=== PATIENT | male | born 1945 | race Caucasian/White ===

== ENCOUNTER → 2017-02-09 | Outpatient (CLI) | payer MEDICARE ==
--- NOTE | 2017-02-09 08:49 | XR ---
EXAM TYPE: LUMBAR SPINE X RAY SERIES COMPARISON: NONE HISTORY: Back pain TECHNIQUE: 3 views are submitted. FINDINGS: Alignment is anatomic. The pedicles are intact. The transverse processes are intact. There is no s pondylolysis or spondylolisthesis. Hypertrophic and degenerative changes are seen at all levels with most marked changes at L4-5 and L5-S1 with facet arthropathy. IMPRESSION: 1. Level hypertrophic and degenerative disc disease with facet arthropathy.
--- NOTE | 2017-02-09 08:55 | US ---
EXAMINATION TYPE: US abdomen complete DATE OF EXAM: 02/09/2017 8:26 AM COMPARISON: NONE CLINICAL HISTORY: N20.0 Kidney stone. pt states rt posterior abd pain EXAM MEASUREMENTS: Liver Length: 18.4 cm Gallbladder Wall: 0.2 cm CBD: 0.5 cm Spleen: 11.4 cm Right Kidney: 11.4 x 5.0 x 6.3 cm Left Kidney: 12.6 x 6.1 x 6.2 cm Some exam limitations due to overlying bowel gas Pancreas: gassed out Liver: upper limits in size, attenuating, coarse echopattern, sparing around gb Gallbladder: wnl Evidence for sonographic Perry's sign: no CBD: wnl Spleen: wnl Right Kidney: wnl Left Kidney: wnl Upper IVC: wnl as seen Abd Aorta: prox and mid gassed out, dist wnl The liver is heterogenous and this may reflect fatty liver. The intrahepatic portion of the IVC and p roximal abdominal aorta are within normal limits. There is no evidence of cholelithiasis. Common bi le duct is unremarkable. The visualized portions of the pancreas are homogenous. The spleen is unre markable. Kidneys are symmetric and free of hydronephrosis. No renal lesions are seen. IMPRESSION: 1 probable hepatic steatosis.
== END | disposition home or self-care (01) ==
LOC: RADUSWWP 08:09
PROVIDERS: ATTEND Internal Medicine Geriatric Medicine
DX: M51.36 Other intervertebral disc degeneration, lumbar region (principal); M43.8X6 Other specified deforming dorsopathies, lumbar region; M46.96 Unspecified inflammatory spondylopathy, lumbar region; N20.0 Calculus of kidney
CPT/HCPCS: 72100; 76700

== ENCOUNTER → 2017-04-16 | Outpatient (CLI) | payer MEDICARE ==
[2017-04-16 11:38] LABS: Blood Urea Nitrogen 23 mg/dL (9-20); Non-African American GFR(MDRD) >60 (>60 ml/min/1.73 sqM)
== END | disposition home or self-care (01) ==
LOC: LABWHC1 10:54
PROVIDERS: ATTEND Internal Medicine Geriatric Medicine
DX: M54.5 Low back pain (principal)
CPT/HCPCS: 36415; 82565; 84520

== ENCOUNTER → 2017-04-18 | Outpatient (CLI) | payer MEDICARE ==
--- NOTE | 2017-04-18 08:02 | MR ---
EXAMINATION TYPE: MR lumbar spine wo/w con DATE OF EXAM: 04/18/2017 7:23 AM COMPARISON: NONE HISTORY: low back pain CONTRAST: The patient was injected with 20 mL intravenous MultiHance gadolinium contrast. Multiplanar, MultiSpin echo imaging of the lumbar spine was performed. There is a transitional lumba r segment with partial sacralization of L5 suspected. L1-L2: Normal disc appearance without desiccation. No herniation, protrusion or disc bulging. No ca nal stenosis is present. Foramina are patent bilaterally. L2-L3: There is mild decreased signal ossified compatible with mild degenerative disc disease. Mild p osterior disc bulge without herniation protrusion or central stenosis. There is facet joint arthropat hy without significant foraminal encroachment. L3-L4: There is mild decreased signal ossified compatible with mild degenerative disc disease. Mild p osterior disc bulge without herniation protrusion or central stenosis. Small annular tear noted. Ther e is facet joint arthropathy resulting in mild bilateral foraminal encroachment. L4-L5: There is mild decreased signal ossified compatible with mild degenerative disc disease. Mild p osterior disc bulge without herniation protrusion or central stenosis. Small annular tear noted. Ther e is facet joint arthropathy resulting in mild bilateral foraminal encroachment. L5-S1: Normal disc appearance without desiccation. No herniation, protrusion or disc bulging. No ca nal stenosis is present. Foramina are patent bilaterally. Lumbar segments are intact. No paraspinal masses are identified. Conus medullaris has a normal appe arance. No pathologic enhancement identified. IMPRESSION: 1. Degenerative disc disease as discussed. 2. Posterior disc bulge with small annular tears. Mild foraminal encroachment as discussed.
== END | disposition home or self-care (01) ==
LOC: RADMRIMAIN 06:32
PROVIDERS: ATTEND Internal Medicine Geriatric Medicine
DX: M51.26 Other intervertebral disc displacement, lumbar region (principal); M51.36 Other intervertebral disc degeneration, lumbar region
CPT/HCPCS: 72158; A9577

== ENCOUNTER → 2017-07-18 | Outpatient (CLI) | payer MEDICARE ==
--- NOTE | 2017-07-18 13:25 | CT ---
EXAMINATION TYPE: CT abdomen pelvis wo con DATE OF EXAM: 07/18/2017 COMPARISON: NONE INDICATION: Hematuria DLP: 995.8 mGycm, Automated exposure control for dose reduction was used. CONTRAST: 0 mL of Omnipaque 300. Study performed without Oral Contrast TECHNIQUE: Axial images were obtained from above the diaphragm to the pubic rami in the axial plane a t 5 mm thick sections. Reconstructed images are reviewed on the computer in the coronal plane. FINDINGS: There is limitation due to lack of intravenous and oral contrast. Limited CT sections are obtained the lung bases. The lung bases are clear. Coronary artery calcific ations present. CT ABDOMEN: Liver: Normal Spleen: Normal Pancreas: Normal Adrenal glands: The adrenal glands are normal. Gallbladder: Normal Kidneys: No masses are evident. No hydronephrosis is present. No cysts are present. There is a 0.4 cm calcification at the inferior pole left kidney. There is some mild hydronephrosis or prominence o f the renal calyces on the left. Small peripelvic cyst be concluded within the differential. No hydro ureter or dilated renal pelvis is evident. Aorta: Vascular calcification is within the aorta. Inferior vena cava: Normal. CT PELVIS: Loops of bowel within the abdomen and pelvis are normal. Studies without oral contrast limiting t he evaluation. Appendix: Not identified Urinary bladder: Normal. Genitourinary structures: Prostate is prominent Osseous structures: No suspicious lytic or sclerotic lesions. IMPRESSIONS: 1. Small peripelvic cysts inferior pole left kidney versus prominence of the renal collecting system and calyces. Nonobstructing 0.4 cm calcification is in the posterior inferior pole left kidney. No h ydroureter is evident.
== END | disposition home or self-care (01) ==
LOC: RADCTMAIN 07:38
PROVIDERS: ATTEND Internal Medicine Geriatric Medicine
DX: N28.89 Other specified disorders of kidney and ureter (principal); R31.9 Hematuria, unspecified
CPT/HCPCS: 74176

== ENCOUNTER → 2019-03-31 | Outpatient (CLI) | payer MEDICARE ==
--- NOTE | 2019-03-31 15:49 | MR ---
EXAMINATION TYPE: MR lumbar spine wo con DATE OF EXAM: 03/31/2019 COMPARISON: 04/18/2017 HISTORY: Radiculopathy Lumbar region TECHNIQUE: T1 and T2 axial and sagittal images of the lumbar spine are submitted. FINDINGS: There is no abnormal signal seen within the visualized spinal cord or paraspinal soft tissu es. At L1-2 there is there is disc desiccation. No disc herniation. Mild hypertrophic change of the facet s. Neural foramina patent. No Canal stenosis. At L2-3 there is disc desiccation and hypertrophic change of the facets. There is left paracentral an d lateral disc bulging. No foraminal encroachment or canal stenosis. At L3-4 there is degenerative disc disease with more marked hypertrophy of the facet joints and ligam entum flavum. There is circumferential disc bulging. Mild flattening of the thecal sac. Mild bilatera l foraminal encroachment. Borderline central stenosis. At L4-5 there is degenerative disc disease with advanced facet arthropathy and circumferential disc b ulging. Mild to moderate bilateral foraminal encroachment. No central stenosis. At L5-S1 there is no disc herniation or canal stenosis. Neural foramina patent. IMPRESSION: 1. Multilevel degenerative disc disease. Disc bulging at L2-L3, L3-L4 and L4-L5 but no focal herniati on. Advanced facet arthropathy L3-4 and L4-5 results in bilateral foraminal encroachment as discussed above. Findings are similar to the prior exam.
== END | disposition home or self-care (01) ==
LOC: RADMRIMAIN 13:58
PROVIDERS: ATTEND Physical Medicine & Rehabilitation
DX: M51.36 Other intervertebral disc degeneration, lumbar region (principal); M47.817 Spondylosis without myelopathy or radiculopathy, lumbosacral region; M46.96 Unspecified inflammatory spondylopathy, lumbar region; M51.86 Other intervertebral disc disorders, lumbar region; E11.9 Type 2 diabetes mellitus without complications
CPT/HCPCS: 72148

== ENCOUNTER → 2020-10-11 | Outpatient (CLI) | payer MEDICARE ==
[2020-10-11 11:57] LABS: HCT 40.3 % (39.0-53.0); HGB 12.9 gm/dL (13.0-17.5); MCH 30.1 pg (25.0-35.0); MCHC 32.1 g/dL (31.0-37.0); MCV 93.7 fL (80.0-100.0); Mean Platelet Volume 7.9; Platelet Count 212 k/uL (150-450); WBC 6.9 k/uL (3.8-10.6)
[2020-10-11 12:15] LABS: Albumin 4.7 g/dL (3.5-5.0); Calcium 9.8 mg/dL (8.4-10.2); Potassium 5.4 mmol/L (3.5-5.1); Total Bilirubin 0.4 mg/dL (0.2-1.3); Total Protein 7.6 g/dL (6.3-8.2)
[2020-10-11 12:32] LABS: Partial Thromboplastin Time 22.6 sec (22.0-30.0); Prothrombin Time 10.8 sec (9.0-12.0)
[2020-10-11 13:14] LABS: Appearance,Urine Clear (Clear); Bilirubin,Urine Negative (Negative); Blood,Urine Negative (Negative); Color,Urine Yellow; Glucose,Urine (UA) Negative (Negative); Ketones,Urine Negative (Negative); Leukocyte Esterase,Urine Negative (Negative); Nitrite,Urine Negative (Negative); Protein,Urine Negative (Negative); Specific Gravity,Urine 1.016 (1.001-1.035); Urobilinogen,Urine <2.0 mg/dL (<2.0)
== END | disposition home or self-care (01) ==
LOC: LABPAT 10:18
PROVIDERS: ATTEND Orthopaedic Surgery
DX: Z01.818 Encounter for other preprocedural examination (principal); Z01.812 Encounter for preprocedural laboratory examination
CPT/HCPCS: 36415; 80053; 81003; 85027; 85610; 85730; 87070

== ENCOUNTER 2020-11-08 07:33 | Day surgery (SDC) | payer MEDICARE, OTHER ==
[2020-11-03 11:04] VITALS: BMI 32.5
[~2020-11-08 07:33] MED LIST: ACETAMINOPHEN TAB 500 MG TAB PO PRN; GABAPENTIN 300 MG CAP PO PRN; MELOXICAM 7.5 MG TAB PO PRN; ONDANSETRON 4 MG/2 ML VIAL IVP PRN; TRANEXAMIC ACID 1,000 MG in SODIUM CHLORIDE 0.9% 100 ML IVPB PRN
[2020-11-08] MEDS ORDERED: LACTATED RINGERS 1,000 ML IV ONE ×3 (07:50→11:06)
[2020-11-08] MEDS ORDERED: ONDANSETRON 4 MG/2 ML VIAL IVP ONE (08:00)
[2020-11-08] MEDS ORDERED: DEXAMETHASONE SOD PHOS (MDV) 100 MG/10 ML VIAL IVP ONE (08:00)
[2020-11-08 08:34] LABS: Glucose,Whole Blood 113 mg/dL (75-99)
[2020-11-08] MEDS ORDERED: MIDAZOLAM 2 MG/2 ML VIAL IVP ONE (08:43)
[2020-11-08] MEDS: ROPIVACAINE/EPI/CLONIDINE/KET 50 ML SYRINGE MISCELLANE PRN ×2 (10:13→11:11)
[2020-11-08] MEDS ORDERED: PROPOFOL 10 MG/ML 20 ML VIAL IV ONE (10:16)
[2020-11-08] MEDS ORDERED: MIDAZOLAM 2 MG/2 ML VIAL ONE (10:16)
[2020-11-08] MEDS ORDERED: SODIUM CHLORIDE 0.9% 100 ML BAG ONE (10:16)
[2020-11-08] MEDS ORDERED: ePHEDrine SULFATE/0.9% NACL/PF 50 MG/5 ML SYRINGE IV ONE (10:16)
[2020-11-08] MEDS ORDERED: fentaNYL (PF) 50 MCG/ML 2 ML AMP ONE (10:16)
[2020-11-08] MEDS ORDERED: TRANEXAMIC ACID 1,000 MG/10 ML VIAL ONE (10:16)
[2020-11-08] MEDS ORDERED: HYDROcodone/APAP 5-325MG 1 EACH TAB PO PRN (10:30)
[2020-11-08] MEDS ORDERED: HYDROmorphone 0.2 MG/1 ML SYRINGE IVP PRN (10:30)
[2020-11-08] MEDS ORDERED: MAGNESIUM HYDROXIDE 2,400 MG/10 ML CUP PO PRN (10:30)
[2020-11-08] MEDS ORDERED: NALOXONE 0.4 MG/ML 1 ML VIAL IV PRN (10:30)
[2020-11-08] MEDS ORDERED: HYDROmorphone 0.5 MG/0.5 ML SYRINGE IVP PRN ×2 (10:30)
[2020-11-08] MEDS ORDERED: NA PHOS,M-B/NA PHOS,DI-BA 133 ML ENEMA RECTAL PRN (10:30)
[2020-11-08] MEDS ORDERED: bisacodyL 10 MG SUPP RECTAL PRN (10:30)
[2020-11-08] MEDS ORDERED: ROPIVACAINE 0.2%-NS ON-Q PUMP 1,090 MG, EMPTY PAIN BALL 1 EACH MISCELLANE PRN (11:26)
--- NOTE | 2020-11-08 11:28 | P.ANPRN ---
Procedure Note - Anesthesia - Nerve Block Performed Left Adductor Canal Infusion Time Out Performed: Yes Date of Procedure: 11/08/20 Procedure Start Time: 08:42 Procedure Stop Time: 08:54 Location of Patient: PreOp Indication: Acute Post-Operative Pain, Requested by Surgeon Sedation Type: Sedate with meaningful contact maintained Preparation: Sterile Prep, Sterile Dressing Position: Supine Catheter: Indwelling Needle Types: Pajunk Needle Gauge: 21 Ultrasound used to visualize needle placement: Yes Ultrasound used to observe medication spread: Yes Blood Aspirated: No Pain Paresthesia on Injection Noted: No Resistance on Injection: Normal Image Stored and Saved: Yes Events: Uneventful and Well Tolerated (ropi .5% 20cc plus dexamethasone 4mg)
--- NOTE | 2020-11-08 11:51 | P.OP ---
Date of Procedure: 11/08/20 Procedure(s) Performed: PREOPERATIVE DIAGNOSIS: Left knee severe osteoarthritis with genu varum POSTOPERATIVE DIAGNOSIS: Left knee severe osteoarthritis with genu varum OPERATION: Left knee cemented total replacement arthroplasty. ANESTHESIA: Spinal ESTIMATED BLOOD LOSS: 100 ml. REFRIGERATED NATIONAL TRUCK DRIVER: Tiara Orozco PA-C (assistance with: patient positioning, retraction, exposure, hemostasis, leg positioning, implantation, irrigation, closure, dressing) COMPLICATIONS: None apparent. COMPONENTS IMPLANTED: Persona system from [employer] INDICATIONS: Ethan is a 74 year old male with a history of left knee osteoarthritis. Conservative treatment has been tried and has been unsuccessful in controlling symptoms adequately. The operation of knee replacement has been discussed at length in the office, as well as potential risks and complications. These are inclusive of, but not limited to: bleeding, infection, scarring, discomfort, blood vessel and nerve damage, need for further surgery, failure to relieve symptoms, persistence, recurrence, or worsening of problems, loosening, dislocation, wear, blood clot, pulmonary embolism, , gait dysfunction, stiffness, and other risks as discussed in the office. The patient elects to proceed and the consent form has been signed. PROCEDURE: The patient was taken to the operating room and positioned on the operating room table in the supine position. Anesthesia was initiated. Care was taken to make sure that all pressure points were adequately padded. The operative lower extremity was prepped and draped in the usual aseptic fashion using ChloraPrep. Ioban drape was used for the case and the patient received intravenous antibiotics within one hour of the incision. A pneumotourniquet and leg quintero were used for the case. The limb was exsanguinated with an Esmarch bandage and the tourniquet was inflated to 350 mmHg. Time-out was called confirming the patient's identity, side, procedure and administration of antibiotics and tranexamic acid, 1 g IV. The incision was then created midline directly over the knee, carried down through skin and into the subcutaneous tissues and down to fascia. Full thickness subcutaneous medial flap was developed. Medial parapatellar arthrotomy was performed and the interior of the knee was inspected. There was end-stage osteoarthritis of the knee with a mild to moderate genu varum type deformity. The fat pad was excised and proximal medial release on the tibia was completed using meticulous dissection and a curved osteotome. The anterior cruciate ligament was taken down. Note was made of significant attrition of the anterior and significant degenerative appearance of the posterior cruciate ligaments. The exposure was excellent. The knee was flexed 90 degrees and the patella was everted. A spot was chosen on the femur approximately 1 cm anterior to the posterior cruciate ligament in sertion and an intramedullary hole was created within the femur. The intramedullary guide was then set to 5 degrees of valgus. The distal cutting block was attached and pinned into position. An appropriate amount of distal femoral resection was set. The oscillating saw was then used to make the distal femoral cut. This cut was confirmed to be flat with the flat end of an osteotome. The retractors were placed around the tibia and the tibial surface was addressed. The angle and depth of resection was adjusted using an extramedullary cutting guide. The guide had a built-in 3 degree posterior slope cut. Once the cutting guide was adjusted appropriately and in line with the axis of the tibia and confirmed to be in good position in relation to the second metatarsal and transmalleolar axis, the tibial cut was then created with protection of the posterior neurovascular structures and the collateral ligaments. The tibial cut surface was removed and sized. Femoral sizing was then accomplished using anterior referencing. Care was taken to analyze the posterior condyles for signs of deficiency or severe wear, and adjustments to the guide were made, as appropriate. 3 degree external rot ation pins were placed. The cutting jig for the femur was applied to these pins. The planned cuts were further analyzed prior to performing them with the oscillating saw. No femoral notching was produced. Bone fragments were removed and the cut surfaces were finished, as necessary, with a reciprocating saw. Spacer block technique was then used to confirm that the flexion and extension gaps were equal. Soft tissue releases and adjustment of the tibial and/or femoral cuts were made, as necessary, until the gaps were equal. This included release of the posterior cruciate ligament, which was tight in this patient. The femur was then further finished for a posterior cruciate ligament substituting component. Patellar resurfacing was performed using a reamer. The size of the required patellar component was estimated and the patellar surface was then reamed down to a residual thickness which would recreate the [place] thickness with the component. The exact placement of the patellar component was adjusted for position based on preoperative x-rays and intraoperative findings. Prior to placing trial components, anesthetic solution consisting of ropivicaine with epinephrine, ketorolac, and clonidine was injected carefully and methodically in a grid pattern using aspiration technique into the soft tissue around the knee circumferentially, starting with the deeper tissues first and progressing to fascia, and then finally the skin/subcutaneous tissue. Particular care was taken when injecting the posterior capsule. The trial components were inserted. The tibial tray was allowed to self center and the patella was noted to track very well. The position of the tibial component was marked and the tibia was then finished for a stemmed tibial component. Cement was mixed on the back table and applied to the final components. Trial components were removed and the cut surfaces of the bone were pulse lavaged thoroughly and dried. Cement was then applied to the tibial surface and pressurized into the surface using finger pressurization technique. The tibial component was then applied and excess cement was removed after it was impacted securely and noted to be flush with the cut surface. In similar fashion, the cement was applied to the cut femoral surface, pressurized in using finger pressurization and the component was impacted into place. Excess cement was removed. The polyethylene spacer was then implanted and locked into position. The patellar component was then applied in similar technique and a patellar clamp was used to hold the patella in place as the cement hardened. Once the cement had fully hardened, the knee was reinspected. Any other cement extrusion was removed and final kinematic testing showed range of motion from 0 to 130 degrees with excellent stability, both medially and laterally and appropriate alignment of the leg. Patellar tracking was excellent. The knee was then thoroughly pulse lavaged with normal saline. The tourniquet was deflated and hemostasis was obtained with electrocautery and IV tranexamic acid, 1 g given prior to inflation of the tourniquet and another gram given at the time of closure. Closure was with #2 Ethibond in the fascia and supplemented with #2 Quill, 2-0 Vicryl suture was used for the subcutaneous tissues and 3-0 Quill for the skin. Dermabond/Steri-Strips were then applied. A lightly compressive dressing was applied using Webril and an Siva wrap. The patient was then transferred to stretcher and taken to the recovery room in stable condition. Sponge and needle counts were correct.
--- NOTE | 2020-11-08 13:01 | XR ---
EXAMINATION TYPE: XR knee limited LT DATE OF EXAM: 11/08/2020 COMPARISON: NONE HISTORY: 74-year-old male evaluation for postoperative abnormality and alignment TECHNIQUE: 2 views FINDINGS: Images show placement of left total knee arthroplasty. Both distal femoral and proximal tibial compon ents of the prosthesis appear well seated without periprosthetic fracture. Alignment grossly anatomic . Scattered soft tissue air as well as intra-articular air related to recent operation. Anterior soft tissue swelling. IMPRESSION: Uncomplicated postoperative appearance left total knee arthroplasty.
[2020-11-08] MEDS ORDERED: ACETAMINOPHEN TAB 500 MG TAB PO PRN (14:39)
[2020-11-08] MEDS ORDERED: diphenhydrAMINE 25 MG CAP PO PRN (14:50)
[2020-11-08 16:36] LABS: Glucose,Whole Blood 151 mg/dL (75-99)
[2020-11-08] MEDS: carvediloL 6.25 MG TAB PO SCH (17:40)
[2020-11-08] MEDS: ASPIRIN 81 MG PO SCH (20:21)
[2020-11-08] MEDS: metFORMIN 500 MG TAB PO SCH (20:21)
[2020-11-08 20:33] LABS: Glucose,Whole Blood 236 mg/dL (75-99)
[2020-11-08] MEDS ORDERED: SENNOSIDES-DOCUSATE SODIUM 1 EACH TAB PO SCH (21:00)
[2020-11-09 02:41] VITALS: TEMP 98.2
[2020-11-09] MEDS: HYDROcodone/APAP 7.5-325MG 1 EACH TAB PO PRN ×2 (04:02→11:39)
[2020-11-09] MEDS ORDERED: LEVOTHYROXINE 50 MCG TAB PO SCH (06:30)
[2020-11-09 07:15] LABS: Glucose,Whole Blood 123 mg/dL (75-99)
--- NOTE | 2020-11-09 07:29 | P.PN ---
Progress Note - Text 11/09/20 644am 74-year-old male status post total knee replacement, patient has an On-Q pump for postop pain control with the solution running at 8 mL an hour. Patient has a VAS of 1. I was called by the nurse last night with complaints of a leak around the On-Q pump site. I examined this morning the dressing is clean dry and intact plan plan to continue On-Q pump infusion
[2020-11-09] MEDS: carvediloL 6.25 MG TAB PO SCH (07:31)
[2020-11-09] MEDS: ASPIRIN 81 MG PO SCH (07:39)
[2020-11-09] MEDS: metFORMIN 500 MG TAB PO SCH (07:39)
[2020-11-09 07:45] VITALS: BP 107/62; PULSE 70; RESP 16
[2020-11-09] MEDS ORDERED: MELOXICAM 7.5 MG TAB PO SCH (09:00)
[2020-11-09] MEDS ORDERED: ATORVASTATIN 40 MG TAB PO SCH (09:00)
[2020-11-09 09:31] LABS: Basophils # (A) 0.02 X 10*3/uL (0.00-0.10); Basophils % (A) 0.1 %; Eosinophils # (A) 0 X 10*3/uL (0.04-0.35); Eosinophils % (A) 0 %; HCT 31.5 % (39.6-50.0); HGB 10.3 g/dL (13.0-17.0); Lymphocytes # (A) 1.27 X 10*3/uL (0.90-5.00); Lymphocytes % (A) 7.6 %; MCHC 32.7 g/dL (32.0-37.0); MCV 91.8 fL (80.0-97.0); Mean Platelet Volume 10.9 fL (9.5-12.2); Monocytes # (A) 1.47 X 10*3/uL (0.20-1.00); Monocytes % (A) 8.8 %; Neutrophils # (A) 13.78 X 10*3/uL (1.80-7.70); Platelet Count 189 X 10*3/uL (140-440); RBC 3.43 X 10*6/uL (4.40-5.60); RDW 13.2 % (11.5-14.5); WBC 16.62 X 10*3/uL (4.50-10.00)
--- NOTE | 2020-11-09 10:01 | P.DS ---
Providers Expected date of discharge: 11/09/20 Attending physician: Fareed Sanders Consults: 11/08/20 10:35 Consult Physician Urgent Consulting Provider: Rustam Hussein Reason/Comments: medical jasiel. Do you want consulting provider notified?: Yes Primary care physician: Rustam Hussein - Discharge Diagnosis(es) (1) Osteoarthritis of left knee Current Visit: Yes Status: Acute (2) Status post total left knee replacement Current Visit: Yes Status: Acute Hospital Course: This is a 74-year-old male who was last seen with complaint of continued left knee pain. The patient has a known history of degenerative arthritis of the left knee and presents to discuss surgical options. After discussion and consideration the patient elects to proceed with total left knee arthroplasty. The patient is seen preoperatively by Dr. Hussein and cleared for surgery. The patient is admitted to [facility] for total left knee arthroplasty. The procedures performed without complication or sequelae. He is doing well postoperatively. Vital signs are stable at discharge. Labs are stable at discharge. the patient is ambulating well with walker with minimal assistance. The patient is discharged to home on postop day #1 pending medical clearance. Please see orders and refer to the [facility] for accurate list of medications. Patient Condition at Discharge: Good Plan - Discharge Summary Discharge Rx Participant: No New Discharge Prescriptions: New Aspirin [Adult Low Dose Aspirin EC] 81 mg PO BID #1 tablet. Meloxicam [Mobic] 1 - 2 tab PO DAILY PRN #60 tab PRN Reason: Pain HYDROcodone/APAP 7.5-325MG [[place] 7.5-325] 1 - 2 tab PO Q6HR PRN #42 tab PRN Reason: Pain Sennosides-Docusate Sodium [Senokot-S] 1 tab PO BID #60 tablet No Action lisinopriL 30 mg PO HS Finasteride [Proscar] 5 mg PO HS Multivitamins, Thera [Multivitamin (formulary)] 1 tab PO DAILY Cetirizine HCl [Zyrtec] 5 mg PO BID Aspirin [Adult Low Dose Aspirin EC] 81 mg PO DAILY Meloxicam [Mobic] 15 mg PO DAILY Atorvastatin [Lipitor] 40 mg PO DAILY metFORMIN HCL [Glucophage] 500 mg PO BID carvediloL [Coreg] 6.25 mg PO BID Levothyroxine Sodium [Synthroid] 50 mcg PO DAILY Ubidecarenone [Co Q-10] 200 mg PO HS Acetaminophen/Diphenhydramine [Tylenol PM 500-25mg] 2 tab PO HS PRN PRN Reason: Pain Discharge Medication List Acetaminophen/Diphenhydramine [Tylenol PM 500-25mg] 2 tab PO HS PRN 11/03/20 [History] Aspirin [Adult Low Dose Aspirin EC] 81 mg PO DAILY 11/03/20 [History] Atorvastatin [Lipitor] 40 mg PO DAILY 11/03/20 [History] Cetirizine HCl [Zyrtec] 5 mg PO BID 11/03/20 [History] Finasteride [Proscar] 5 mg PO HS 11/03/20 [History] Levothyroxine Sodium [Synthroid] 50 mcg PO DAILY 11/03/20 [History] Meloxicam [Mobic] 15 mg PO DAILY 11/03/20 [History] Multivitamins, Thera [Multivitamin (formulary)] 1 tab PO DAILY 11/03/20 [History] Ubidecarenone [Co Q-10] 200 mg PO HS 11/03/20 [History] carvediloL [Coreg] 6.25 mg PO BID 11/03/20 [History] lisinopriL 30 mg PO HS 11/03/20 [History] metFORMIN HCL [Glucophage] 500 mg PO BID 11/03/20 [History] Aspirin [Adult Low Dose Aspirin EC] 81 mg PO BID #1 tablet. 11/09/20 [Rx] HYDROcodone/APAP 7.5-325MG [[place] 7.5-325] 1 - 2 tab PO Q6HR PRN #42 tab 11/09/20 [Rx] Meloxicam [Mobic] 1 - 2 tab PO DAILY PRN #60 tab 11/09/20 [Rx] Sennosides-Docusate Sodium [Senokot-S] 1 tab PO BID #60 tablet 11/09/20 [Rx] Follow up Appointment(s)/Referral(s): Tiara Orozco PAC [PHYSICIAN ICT BUSINESS ANALYST] - 11/24/20 3:00 pm Gary Keenan MD [REFERRING] - 1 Week [facility], [NON-STAFF] - ([facility] will call you to set up your first visit. ) Patient Instructions/Handouts: *Surgery [facility] - On-Q Pain Pump Discharge Instructions, Precautions after Total Joint Replacement Surgery (DC), Joint Replacement Surgery (DC) Activity/Diet/Wound Care/Special Instructions: May bear weight as tolerated with walker. Keep Optifoam dressing in place for 10 days. May shower if no drainage from incision. Discharge Disposition: HOME WITH HOME HEALTH SERVICES
[2020-11-09 11:20] LABS: Glucose,Whole Blood 113 mg/dL (75-99)
[2020-11-10 00:50] LABS: Hemoglobin A1C 5.8 % (4.0-6.0)
== END 2020-11-09 14:06 | disposition home health service (06) ==
LOC: OR 07:33 → 4SSUR 12:08 → OR 11-09 14:06
PROVIDERS: ATTEND Orthopaedic Surgery
DX: M17.12 Unilateral primary osteoarthritis, left knee (principal); M21.162 Varus deformity, not elsewhere classified, left knee; E11.9 Type 2 diabetes mellitus without complications; I10 Essential (primary) hypertension; I25.10 Atherosclerotic heart disease of native coronary artery without angina pectoris; I25.5 Ischemic cardiomyopathy; I65.29 Occlusion and stenosis of unspecified carotid artery; I25.2 Old myocardial infarction; E78.2 Mixed hyperlipidemia; E03.9 Hypothyroidism, unspecified; D50.9 Iron deficiency anemia, unspecified; H91.90 Unspecified hearing loss, unspecified ear; K21.9 Gastro-esophageal reflux disease without esophagitis; K44.9 Diaphragmatic hernia without obstruction or gangrene; Z79.84 Long term (current) use of oral hypoglycemic drugs; Z79.1 Long term (current) use of non-steroidal anti-inflammatories (NSAID); Z79.82 Long term (current) use of aspirin; Z79.890 Hormone replacement therapy; Z79.899 Other long term (current) drug therapy; Z97.3 Presence of spectacles and contact lenses; Z95.5 Presence of coronary angioplasty implant and graft; Z87.891 Personal history of nicotine dependence; Z83.3 Family history of diabetes mellitus; Z82.49 Family history of ischemic heart disease and other diseases of the circulatory system; Z84.2 Family history of other diseases of the genitourinary system; Z80.6 Family history of leukemia; Z98.890 Other specified postprocedural states; Z91.09 Other allergy status, other than to drugs and biological substances
CPT/HCPCS: 97116; 97110; 97161; 64448; 76942; 84132; 85025; 88300; 83036; 73560; 27447; C1713; C1776; J2250; J0690 ×2; J2405; J1100; J2795

== ENCOUNTER → 2021-04-06 | Outpatient (CLI) | payer MEDICARE, OTHER ==
--- NOTE | 2021-04-06 08:21 | MR ---
EXAMINATION TYPE: MR lumbar spine wo con DATE OF EXAM: 04/06/2021 COMPARISON: Prior MRI lumbar spine March 31, 2019 HISTORY: Right sided lower back pain into right leg x 3 years. Getting worse. Spondylolisthesis, radi culopathy, spondylolisthesis, and intervertebral disc degeneration. TECHNIQUE: Multiplanar, multisequence imaging of the lumbar spine is performed without IV contrast. FINDINGS: Sagittal images of the lumbar spine show vertebral body heights and alignment to remain sat isfactory. Multilevel disc desiccation redemonstrated. Stable moderate disc space narrowing L5-S1 lev el. The conus medullaris is stable in position and signal ending at T12-L1 disc space level. The tamanna ne marrow signal intensity is within normal limits. Mild multilevel anterior spurring redemonstrated. Axial images beginning at T12-L1 level which remain within normal limits. Axial images at L1-L2 level remain within normal limits. Axial images at L2-L3 level show tiny left paracentral disc protrusion minimally effacing anterolater al thecal sac. Patent bilateral neural foramina. Mild facet arthropathy bilaterally. No significant c hange from prior. Axial images at L3-L4 level redemonstrate moderate facet arthropathy and ligamentum flavum hypertroph y with some effacement of the posterior lateral thecal sac. There is mild broad-based posterior disc protrusion causing asymmetric mild left greater than right anterior inferior neural foraminal narrowi ng. No significant change from prior. Axial images at L4-L5 level show moderate to advanced facet degenerative changes bilaterally. There i s moderate broad disc bulge. There is mild effacement of the anterior thecal sac. There is moderate b ilateral neural foraminal narrowing. Findings show some interval progression from prior MRI. Axial images at L5-S1 level show moderate facet arthropathy bilaterally. Spinal canal preserved. Khan nt bilateral neural foramina. No significant change from prior. Paraspinal muscle bulk is preserved. Suspect simple central parapelvic cyst left kidney axial image 2 2 unchanged from prior. IMPRESSION: Multilevel degenerative changes as detailed above. Most prominent findings noted L4-L5 le alcides with interval degenerative progression from most recent MRI at this level thought present.
== END | disposition home or self-care (01) ==
LOC: RADMRIMAIN 06:49
PROVIDERS: ATTEND Physical Medicine & Rehabilitation
DX: M51.16 Intervertebral disc disorders with radiculopathy, lumbar region (principal); M47.27 Other spondylosis with radiculopathy, lumbosacral region; M99.73 Connective tissue and disc stenosis of intervertebral foramina of lumbar region
CPT/HCPCS: 72148

== ENCOUNTER → 2025-03-12 | Outpatient (CLI) | payer MEDICARE, OTHER ==
--- NOTE | 2025-03-12 16:48 | MR ---
EXAMINATION TYPE: MR lumbar spine wo con DATE OF EXAM: 03/12/2025 4:35 PM COMPARISON: 03/31/2019 04/06/2021. CLINICAL INDICATION: Male, 79 years old with history of M43.17 M47.816 M47.817 M51.17 M54.16 R20.2 M4 8.062; PHH, Low back pain into Right side TECHNIQUE: Multi planar, multi sequence imaging was performed utilizing: T1-weighted, T2-weighted, a nd turbo inversion recovery imaging of the lumbar spine. IV Contrast: mL (None, if empty) FINDINGS: Alignment: The lumbar vertebral bodies have preserved heights with grade 1 anterolisthesis of L5 on S 1. Cord: The conus medullaris and the distal spinal cord appear unremarkable with regards to their signa l intensity and morphology. Bones/Discs: Mild degeneration changes throughout the spine with osteophyte formation and facet joint arthropathy. Intervertebral disc signal is maintained. No abnormal inversion recovery signal to sugg est bony edema. T12-L1: No evidence of significant spinal canal stenosis or neural foraminal stenosis. L1-L2: No evidence of significant spinal canal stenosis or neural foraminal stenosis. L2-L3: No evidence of significant spinal canal stenosis or neural foraminal stenosis. L3-L4: No evidence of significant spinal canal stenosis or neural foraminal stenosis. L4-L5: No evidence of significant spinal canal stenosis. Facet joint arthropathy mild bilateral neura l foraminal stenosis. L5-S1: Disc uncovering from grade 1 anterolisthesis and facet joint arthropathy with mild spinal zina l stenosis and severe bilateral neural foraminal stenosis , left greater than right. No significant spinal canal or neural foraminal stenosis in the remainder of the visualized levels. Other findings: None. IMPRESSION: 1. No definitive evidence of disc herniation or significant spinal canal stenosis. 2. Multilevel disc degeneration with associated osteoarthritic changes. 3. Grade 1 anterolisthesis at L5-S1 Broad-based disc bulge at L5-S1 with severe bilateral neural for aminal stenosis left greater than right. Mildly worsened from prior [facility], , 03/12/2025 4:45 PM
== END | disposition home or self-care (01) ==
LOC: RADMRIMAIN 15:08
PROVIDERS: ATTEND Physical Medicine & Rehabilitation
DX: M48.062 Spinal stenosis, lumbar region with neurogenic claudication (principal); M51.17 Intervertebral disc disorders with radiculopathy, lumbosacral region; M47.27 Other spondylosis with radiculopathy, lumbosacral region; M43.17 Spondylolisthesis, lumbosacral region; M16.12 Unilateral primary osteoarthritis, left hip
CPT/HCPCS: 72148